=== PATIENT | male | born 1970 | race Caucasian/White ===

== ENCOUNTER → 2020-12-18 14:59 | Outpatient (CLI) | payer OTHER, SELFPAY ==
[2020-12-18] MEDS: COVID-19 VACC #1, MRNA(MOD) 100 MCG/0.5 ML VIAL IM (15:02)
== END ==
PROVIDERS: Family Provider Family Medicine; PCP Family Medicine; Visit Provider Internal Medicine
DX: Z23 Encounter for immunization (principal)
CPT/HCPCS: 0011A; 91301

== ENCOUNTER → 2021-01-15 14:44 | Outpatient (CLI) | payer OTHER, SELFPAY ==
[2021-01-15] MEDS: COVID-19 VACC #2, MRNA(MOD) 100 MCG/0.5 ML VIAL IM (14:48)
== END ==
PROVIDERS: Family Provider Family Medicine; PCP Family Medicine; Visit Provider Internal Medicine
DX: Z23 Encounter for immunization (principal)
CPT/HCPCS: 0012A; 91301

== ENCOUNTER 2024-12-24 10:17 | Emergency (ER) | payer OTHER, SELFPAY ==
[2024-12-24 10:20] VITALS: BP 127/58; PULSE 70; RESP 18; TEMP 36; O2SAT 100; BMI 28.7
--- NOTE | 2024-12-24 10:24 | DI.RAD.S_ITS ---
PROCEDURE: XR WRIST LT MIN 3V INDICATIONS: fall/bilateral wrist pain TECHNIQUE: 4 views of the wrist were acquired. COMPARISON: None. FINDINGS: Bones: Severely comminuted, mildly impacted fracture of the distal left radius with intra-articular extension. Scapholunate interval measures at the upper limits of normal. Remainder of the visualized osseous structures appear intact. No suspicious intra osseous lesions. Soft tissues: No suspicious soft tissue calcifications. IMPRESSION: Severely comminuted, mildly impacted intra-articular fracture of the distal left radius. Dictated by: Joshua Prado M.D. on 12/24/2024 at 11:49 Approved by: Joshua Prado M.D. on 12/24/2024 at 11:50
--- NOTE | 2024-12-24 10:24 | DI.RAD.S_ITS ---
PROCEDURE: XR WRIST RT MIN 3V INDICATIONS: fall/bilateral wrist pain TECHNIQUE: 4 views of the wrist were acquired. COMPARISON: [facility], CR, XR WRIST LT MIN 3V, 12/24/2024, 10:40. FINDINGS: Bones: Severely comminuted, intra-articular fracture of the distal right radius. Mild impaction. Overlying soft tissue swelling. Scapholunate interval measures at the upper limits of normal. Soft tissues: No suspicious soft tissue calcifications. IMPRESSION: Severely comminuted, intra-articular fracture of the distal right radius. Dictated by: Joshua Prado M.D. on 12/24/2024 at 11:50 Approved by: Joshua Prado M.D. on 12/24/2024 at 11:52
--- NOTE | 2024-12-24 10:27 | DI.RAD.S_ITS ---
PROCEDURE: XR SACRUM COCCYX MIN 2V INDICATIONS: fall onto hands and coccyx TECHNIQUE: 3 views of the sacrum and coccyx acquired. COMPARISON: None. FINDINGS: Bones: There is grade 1 anterolisthesis of L5 on S1 likely related to pars defect. No acute compression fractures. Mild cortical angulation of the anterior margin of the distal sacrum possibly related to nondisplaced fracture. Lower lumbar spondylosis. Soft tissues: Visualized bowel gas pattern is normal. No suspicious soft tissue densities. IMPRESSION: 1. Mild cortical angulation of the anterior margin of the distal sacrum which may be related to a nondisplaced fracture given history of fall. 2. Grade 1 anterolisthesis of L5 on S1 likely related to pars defect or spondylitic changes. No acute compression fractures of the imaged spine. Dictated by: Joshua Prado M.D. on 12/24/2024 at 11:52 Approved by: Joshua Prado M.D. on 12/24/2024 at 11:54
[2024-12-24] MEDS: HYDROMORPHONE 0.5 MG INJ IV (10:36)
[2024-12-24] MEDS: ONDANSETRON 4 MG/2 ML INJ IV (10:36)
--- NOTE | 2024-12-24 10:41 | ED.GENADULT ---
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 He did not strike his head. No head pain, face pain, posterior or anterior neck pain. No nausea or vomiting. No focal weakness to face arm or leg. No focal numbness to face arm or leg. He had bilateral wrist pain and coccygeal area low back pain after his fall. He was able to ambulate after the fall. No incontinence of urine or stool. He does not take blood thinner medications. No prior wrist surgical interventions or injuries, though he did report remote childhood wrist fractures both sides treated with immobilization only. No rectal bleeding symptoms. Related Data Previous Rx's Medication Instructions Recorded hydrocodone 5 mg-acetaminophen 325 1 tab PO Q6H PRN pain #14 tabs 12/24/25 mg tablet hydrocodone 5 mg-acetaminophen 325 1 tab PO Q6H PRN pain #14 tabs 12/24/25 mg tablet Allergies Allergy/AdvReac Type Severity Reaction Status Date / Time No Known Drug Allergies Allergy Verified 12/18/20 15:06 Patient History Social History Smoking Status: Former smoker Smoking Status: Former smoker Exam Narrative Exam Narrative: GENERAL: Well-developed patient, in mild distress. HEAD: Atraumatic. Normocephalic. No occipital or posterior head injuries, erythema, abrasions, tenderness. EYES: Pupils equal round and reactive. Extraocular motions intact. No scleral icterus. No injection or drainage. ENT: Nose without bleeding, purulent drainage. Throat without erythema, tonsillar hypertrophy or exudate. Airway patent. NECK: Trachea midline. Non tender, moves neck well [id number] and with flexion-extension. CARDIOVASCULAR: Regular rate and rhythm without murmurs, gallops, or rubs. RESPIRATORY: Clear to auscultation. Breath sounds equal bilaterally. No wheezes, rales, or rhonchi. GASTROINTESTINAL: Abdomen soft, non-tender, nondistended. EXTREMITIES: Right distal wrist tenderness with swelling, closed. Left distal wrist tenderness with swelling, closed. No obvious finger or fingernail deformities, no subungual hematomas, no obvious dislocations. No tenderness to mid upper forearms, elbows, upper arms, shoulders. No lower extremity injuries obvious. BACK: Nontender without deformity or crepitance. No flank tenderness. Tenderness low midline coccygeal, no skin irritation/abrasion, no crepitance. NEURO: AOx3. Motor functions grossly nonfocal SKIN: No rash or erythema of visible areas Initial Vital Signs Initial Vital Signs: Vital Signs Temperature 96.8 F L 12/24/24 10:20 Pulse Rate 70 12/24/24 10:20 Respiratory Rate 18 12/24/24 10:20 Blood Pressure 127/58 L 12/24/24 10:20 Pulse Oximetry 100 12/24/24 10:20 Oxygen Delivery Method Room Air 12/24/24 10:20 Course Orders Ordered: Discontinued Medications Hydrocodone Bitart/Acetaminophen (Hydrocodone/Acet 5/325 Tablet) 1 tab PO NOW ONE Stop: 12/24/24 16:19 Last Admin: 12/24/24 16:28 Dose: 1 tab Documented By: SIN Hydromorphone HCl (Hydromorphone 0.5 Mg Inj) 0.5 mg IV NOW ONE Stop: 12/24/24 10:33 Last Admin: 12/24/24 10:36 Dose: 0.5 mg Documented By: Hydromorphone HCl (Hydromorphone 1 Mg Inj) 1 mg IV NOW ONE Stop: 12/24/24 11:03 Last Admin: 12/24/24 11:09 Dose: 1 mg Documented By: Ondansetron HCl (Ondansetron 4 Mg/2 Ml Inj) 4 mg IV NOW ONE Stop: 12/24/24 10:33 Last Admin: 12/24/24 10:36 Dose: 4 mg Documented By: Vital Signs Vital signs: Vital Signs - 8 hr 12/24/24 14:22 12/24/24 14:22 12/24/24 17:41 Temperature 98.4 F Pulse Rate 78 76 65 Respiratory Rate 18 18 19 Blood Pressure 133/78 Pulse Oximetry 98 99 99 Oxygen Delivery Method Room Air Room Air Medical Decision Making Imaging Data Extremity x-ray #1: Radiologist's Impression: [address] [address] XRay Report Signed Patient: Jovana Meeks MR#: [id number] : 1970 Acct:[id number] Age/Sex: 54 / M Date of Service: 12/24/24 Loc: ED Accession Number: [id number] Procedure: XR wrist LT min 3V Ordering Provider: Alexandre Singh MD PROCEDURE: XR WRIST LT MIN 3V INDICATIONS: fall/bilateral wrist pain TECHNIQUE: 4 views of the wrist were acquired. COMPARISON: None. FINDINGS: Bones: Severely comminuted, mildly impacted fracture of the distal left radius with intra-articular extension. Scapholunate interval measures at the upper limits of normal. Remainder of the visualized osseous structures appear intact. No suspicious intra osseous lesions. Soft tissues: No suspicious soft tissue calcifications. IMPRESSION: Severely comminuted, mildly impacted intra-articular fracture of the distal left radius. Dictated by: Joshua Prado M.D. on 12/24/2024 at 11:49 Approved by: Joshua Prado M.D. on 12/24/2024 at 11:50 Extremity x-ray #2: Radiologist's Impression: [address] [address] XRay Report Signed Patient: Jovana Meeks MR#: [id number] : 1970 Acct:[id number] Age/Sex: 54 / M Date of Service: 12/24/24 Loc: ED Accession Number: [id number] Procedure: XR wrist RT min 3V Ordering Provider: Alexandre Singh MD PROCEDURE: XR WRIST RT MIN 3V INDICATIONS: fall/bilateral wrist pain TECHNIQUE: 4 views of the wrist were acquired. COMPARISON: [facility], , XR WRIST LT MIN 3V, 12/24/2024, 10:40. FINDINGS: Bones: Severely comminuted, intra-articular fracture of the distal right radius. Mild impaction. Overlying soft tissue swelling. Scapholunate interval measures at the upper limits of normal. Soft tissues: No suspicious soft tissue calcifications. IMPRESSION: Severely comminuted, intra-articular fracture of the distal right radius. Dictated by: Joshua Prado M.D. on 12/24/2024 at 11:50 Approved by: Joshua Prado M.D. on 12/24/2024 at 11:52 Coccygeal x-ray series: Radiologist's Impression: Close Lumbar Spine CT 12/24/24 Sacrum and Coccyx X-Ray (Signed) Joshua Prado - 12/24/24 Wrist X-Ray (Signed) Joshua Prado - 12/24/24 Wrist X-Ray (Signed) Joshua Prado - 12/24/24 Launch?[address] [address] XRay Report Signed Patient: Jovana Meeks MR#: [id number] : 1970 Acct:[id number] Age/Sex: 54 / M Date of Service: 12/24/24 Loc: ED Accession Number: [id number] Procedure: XR sacrum coccyx min 2V Ordering Provider: Alexandre Singh MD PROCEDURE: XR SACRUM COCCYX MIN 2V INDICATIONS: fall onto hands and coccyx TECHNIQUE: 3 views of the sacrum and coccyx acquired. COMPARISON: None. FINDINGS: Bones: There is grade 1 anterolisthesis of L5 on S1 likely related to pars defect. No acute compression fractures. Mild cortical angulation of the anterior margin of the distal sacrum possibly related to nondisplaced fracture. Lower lumbar spondylosis. Soft tissues: Visualized bowel gas pattern is normal. No suspicious soft tissue densities. IMPRESSION: 1. Mild cortical angulation of the anterior margin of the distal sacrum which may be related to a nondisplaced fracture given history of fall. 2. Grade 1 anterolisthesis of L5 on S1 likely related to pars defect or spondylitic changes. No acute compression fractures of the imaged spine. Dictated by: Joshua Prado M.D. on 12/24/2024 at 11:52 Approved by: Joshua Prado M.D. on 12/24/2024 at 11:54 CT lumbar spine: Radiologist's Impression: Close Lumbar Spine CT (Signed) Yasmin Jacinto - 12/24/24 Sacrum and Coccyx X-Ray (Signed) Joshua Prado - 12/24/24 Wrist X-Ray (Signed) Joshua Prado 12/24/24 Wrist X-Ray (Signed) Joshua Prado 12/24/24 Launch?[address] [place] [address] CT Scan Report Signed Patient: Jovana Meeks MR#: [id number] : 1970 Acct:[id number] Age/Sex: 54 / M Date of Service: 12/24/24 Loc: ED Accession Number: [id number] Procedure: CT lumbar spine wo con Ordering Provider: Alexandre Singh MD PROCEDURE: CT LUMBAR SPINE WO CON INDICATIONS: fall, coccyx pain, ?L5-S1 listhesis on XRay side view TECHNIQUE: Noncontrast 3 mm thick sections acquired from the T12 level to the sacrum. Sagittal and coronal reformats were constructed. For radiation dose reduction, the following was used: automated exposure control. COMPARISON: [facility], , XR SACRUM COCCYX MIN 2V, 12/24/2024, 10:40. FINDINGS: Image quality: Excellent Mild retrolisthesis of L4 on L5. Grade 1 anterolisthesis of L5 on S1, with bilateral pars defect. Vertebral body height of the lumbar spine are well maintained. Multilevel, mild degenerative disc disease of the lumbar spine. Multilevel disc bulge. Right neural foraminal stenosis: Mild at L4-5, severe at L5-S1. Left neural foraminal stenosis: Mild at L3-4, L4-5, and moderate at L5-S1. Central canal stenosis: Mild at L3-4 and L4-5, secondary to disc bulge. Multilevel mild facet arthropathy. Visualized sacrum is intact. Mild degenerative changes of bilateral sacroiliac joint. The coccyx is excluded from field of view. No visualized sacral coccyx fracture. No acute fracture in the lumbar spine. 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 Bilateral renal stones, measuring up to 9 mm on the left. No hydronephrosis of either kidney. Mild calcification of the abdominal aorta. Mild large amount of the prostate, partially visualized. IMPRESSION: 1. The coccyx is excluded from field of view. Otherwise no acute fracture in the lumbar spine, and in the sacrum. 2. Multilevel degenerative changes lumbar spine, most pronounced at L5-S1, where there is severe right and moderate left neural foraminal stenosis. 3. 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 Dictated by: Yasmin Jacinto M.D. on 12/24/2024 at 12:11 Approved by: Yasmin Jacinto M.D. on 12/24/2024 at 12:20 CT right wrist noncontrast: Radiologist's Impression: Close Upper Extremity CT (Signed) Maicol Castillo - 12/24/[address] 12/24/[address] (Signed) Yasmin Jacinto - 12/24/24 Sacrum and Coccyx X-Ray (Signed) EveJoshua - 12/24/24 Wrist X-Ray (Signed) EveJoshua - 12/24/24 Wrist X-Ray (Signed) Joshua Prado - 12/24/24 Launch?Image [address] [address] [address] Scan Report Signed Patient: Jovana Meeks MR#: [id number] : 1970 Acct:[id number] Age/Sex: 54 / M Date of Service: 12/24/24 Loc: ED Accession Number: [id number] Procedure: CT UE RT wo con Ordering Provider: Alexandre Singh MD PROCEDURE: CT UE RT WO CON INDICATIONS: comminuted fracture distal wrist, ortho request - right TECHNIQUE: Noncontrast 1 mm axial sections acquired through the carpal bones, with coronal and sagittal reformats. For radiation dose reduction, the following was used: automated exposure control, adjustment of mA and/or kV according to patient size. COMPARISON: [facility], CR, XR WRIST RT MIN 3V, 12/24/2024, 10:40. FINDINGS: Image quality: Excellent. Bones: Comminuted impacted intra-articular fracture of the distal radius again seen as demonstrated radiographically. On sagittal images, there is up to 4 mm step-off at the distal radial articular surface. Mild dorsal tilting of the radial talar surface is seen. The fracture line extends into the distal radioulnar joint as well without significant step-off. No definite ulnar fracture is seen. The remaining visualized osseous structures appear to be intact. Carpal bones are normally aligned. Soft tissues: Soft tissue edema and joint effusions are seen surrounding the wrist. The articular cartilages, ligaments, tendons are not well evaluated with CT. The visualized musculature is normal in bulk. IMPRESSION: Comminuted impacted intra-articular fracture of the distal radius as described above with up to 4 mm step-off and mild dorsal tilting of the distal radial articular surface. Approved by: Maicol Castillo M.D. on 12/24/2024 at 13:07 CT left wrist noncontrast: Radiologist's Impression: Close Upper Extremity CT (Signed) Maicol Castillo - 12/24/[address] (Signed) Maicol Castillo - 12/24/[address] (Signed) Yasmin Jacinto - 12/24/24 Sacrum and Coccyx X-Ray (Signed) EveJoshua - 12/24/24 Wrist X-Ray (Signed) EveJoshua - 12/24/24 Wrist X-Ray (Signed) EveJoshua - 12/24/24 Launch?[place] [address] CT Scan Report Signed Patient: Jovana Meeks MR#: [id number] : 1970 Acct:[id number] Age/Sex: 54 / M Date of Service: 12/24/24 Loc: ED Accession Number: [id number] Procedure: CT UE LT wo con Ordering Provider: Alexandre Singh MD PROCEDURE: CT UE LT WO CON INDICATIONS: comminuted distal radius fracture, ortho request - left TECHNIQUE: Noncontrast 1-1.5 mm axial sections were acquired through the elbow joint, with coronal and sagittal reformats. For radiation dose reduction, the following was used: automated exposure control, adjustment of mA and/or kV according to patient size. COMPARISON: [facility], CR, XR WRIST LT MIN 3V, 12/24/2024, 10:40. FINDINGS: Image quality: Excellent. Bones: Comminuted intra-articular fracture of the distal left radius with mild dorsal tilting of the distal radial articular surface. There is minimal step-off measuring 1-2 mm. Fracture line extends into the distal radioulnar joint without significant step-off. No ulnar fracture is seen. Carpal bones are normally aligned. No additional osseous fracture is seen. Soft tissues: Soft tissue edema and small joint effusions are seen surrounding the wrist. Small ossified fragments are seen along the dorsal radiocarpal joint line. The articular cartilages, ligaments, tendons are not well evaluated with CT. The visualized musculature is normal in bulk. IMPRESSION: Comminuted minimally displaced intra-articular fracture of the left distal radius with mild dorsal tilting of the distal radial articular surface but no significant step-off. Small joint effusions are seen with multiple tiny osseous fragments along the dorsal radiocarpal joint line. Approved by: Maicol Castillo M.D. on 12/24/2024 at 13:10 MDM Narrative Medical decision making narrative: 54-year-old male fell at work from back of a trailer onto both risk falling backwards, no head or neck or spine pain, tenderness to both wrists without gross deformity but swelling to both sides, also some coccygeal area discomfort. X-rays both wrists requested at triage, as well as coccygeal x-ray series. IV Dilaudid X-ray right wrist shows comminuted intra-articular fracture reasonably aligned, ED wet read. X-ray left wrist shows comminuted intra-articular fracture reasonably aligned, ED wet read. Sugar-tong splinting both arms with slings ordered. Follow up with Orthopedic surgery for likely ORIF stabilization. Coccygeal x-ray with no obvious distal coccygeal fracture, however on L5-S1 lateral view there is some spondylolisthesis, he is not particularly tender in that area but has low back discomfort, we will additionally imaged with CT lumbar spine to include the L5/S1 interspace. Patient agreeable. 1210, case discussed with local orthopedics Dr. Michel who reviewed x-rays, would request further imaging of both wrists given extensive impact comminution, likely needs hand surgery, local hand surgeon Dr. Maddox on vacation this week, advises follow up with hand surgery at [facility] Dr. Epperson if he is available, or with [facility] at [phone] studies ordered, patient agrees. CT wrists performed, images pushed to [facility] to coordinate hand surgery close follow up. Patient aware. 1415, still awaiting call back from [facility] hand clinic to coordinate follow up. Case discussed with hand surgery Dr Horne, can see in their hand clinic, likely no slots this next week, but can see patient if local hand surgeon not available by then. Contact info relayed to nurse, they will contact patient tomorrow. Also gave clinic contact info for local hand surgeon. Rx for hydrocodone/APAP. Sugartong splints applied with bilateral slings. DC home with mother. [facility] hand surgery [facility] or [facility], whichever can be arranged soonest. Off work until cleared by hand surgery likely after ORIF treatments completed. Can use air cushion donut as needed for possible cortical coccyx fracture. Return precautions discussed. [employer] form filled out, claim number [id number]. 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 Bilateral wrist pain. X-rays showed comminuted multi fragment intra-articular fractures of distal radius on both sides right and left. Splints were applied. Sling is applied. You also had some discomfort at the tailbone area. X-ray series of the coccyx tailbone region showed possible slight cortical bone change, possible small fracture there, which would not require any surgical treatment. Slight forward position L5 onto S1 which could be anatomic, prompted further imaging of that area with CT scanning. CT scanning without obvious acute spinal fracture changes of the L5/S1 region. Follow up with Orthopedic surgery, likely will need pinning/surgical intervention stabilization of both wrists comminuted multiple fragment intra-articular distal radius fractures. Contact information given for local orthopedic surgery on-call Dr. Michel. Call her office later today/tomorrow for close follow up surgical planning. Prescription for pain medication sent to your pharmacy. Phone consultation today with [facility] hand surgeon Dr Horne, they can see you in their clinic, at [phone]. They were given your face sheet phone number contact information, and they should be contacting you tomorrow from [facility] as well. Unclear if this would be any faster than with local hand surgeon Dr Maddox up here, who is reportedly on vacation this next week. Contact information also given for hand surgery Dr. Maddox appear. Perhaps call both numbers to see which follow up appointment can be done earlier. [employer] form filled out, claim [id number]. Off work until cleared from orthopedic surgery in follow up. Prescriptions: New hydrocodone-acetaminophen 5-325 mg tablet 1 tab PO Q6H PRN (Reason: pain) Qty: 14 0RF hydrocodone-acetaminophen 5-325 mg tablet 1 tab PO Q6H PRN (Reason: pain) Qty: 14 0RF Referrals: Kya Pace MD [Physician] - Emeterio Beasley MD [Primary Care Provider] - Zay Maddox MD [Physician] - Stand Alone Forms: Patient Portal/API/Survey
[2024-12-24 10:59] VITALS: PULSE 67; O2SAT 98
[2024-12-24 11:00] VITALS: PULSE 65; O2SAT 99
[2024-12-24] MEDS: HYDROMORPHONE 1 MG INJ IV (11:09)
--- NOTE | 2024-12-24 11:39 | DI.CT.S_ITS ---
PROCEDURE: CT LUMBAR SPINE WO CON INDICATIONS: fall, coccyx pain, ?L5-S1 listhesis on XRay side view TECHNIQUE: Noncontrast 3 mm thick sections acquired from the T12 level to the sacrum. Sagittal and coronal reformats were constructed. For radiation dose reduction, the following was used: automated exposure control. COMPARISON: [facility], , XR SACRUM COCCYX MIN 2V, 12/24/2024, 10:40. FINDINGS: Image quality: Excellent Mild retrolisthesis of L4 on L5. Grade 1 anterolisthesis of L5 on S1, with bilateral pars defect. Vertebral body height of the lumbar spine are well maintained. Multilevel, mild degenerative disc disease of the lumbar spine. Multilevel disc bulge. Right neural foraminal stenosis: Mild at L4-5, severe at L5-S1. Left neural foraminal stenosis: Mild at L3-4, L4-5, and moderate at L5-S1. Central canal stenosis: Mild at L3-4 and L4-5, secondary to disc bulge. Multilevel mild facet arthropathy. Visualized sacrum is intact. Mild degenerative changes of bilateral sacroiliac joint. The coccyx is excluded from field of view. No visualized sacral coccyx fracture. No acute fracture in the lumbar spine. 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 Bilateral renal stones, measuring up to 9 mm on the left. No hydronephrosis of either kidney. Mild calcification of the abdominal aorta. Mild large amount of the prostate, partially visualized. IMPRESSION: 1. The coccyx is excluded from field of view. Otherwise no acute fracture in the lumbar spine, and in the sacrum. 2. Multilevel degenerative changes lumbar spine, most pronounced at L5-S1, where there is severe right and moderate left neural foraminal stenosis. 3. 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 Dictated by: Yasmin Jacinto M.D. on 12/24/2024 at 12:11 Approved by: Yasmin Jacinto M.D. on 12/24/2024 at 12:20
--- NOTE | 2024-12-24 12:14 | DI.CT.S_ITS ---
PROCEDURE: CT UE LT WO CON INDICATIONS: comminuted distal radius fracture, ortho request - left TECHNIQUE: Noncontrast 1-1.5 mm axial sections were acquired through the elbow joint, with coronal and sagittal reformats. For radiation dose reduction, the following was used: automated exposure control, adjustment of mA and/or kV according to patient size. COMPARISON: [facility], CR, XR WRIST LT MIN 3V, 12/24/2024, 10:40. FINDINGS: Image quality: Excellent. Bones: Comminuted intra-articular fracture of the distal left radius with mild dorsal tilting of the distal radial articular surface. There is minimal step-off measuring 1-2 mm. Fracture line extends into the distal radioulnar joint without significant step-off. No ulnar fracture is seen. Carpal bones are normally aligned. No additional osseous fracture is seen. Soft tissues: Soft tissue edema and small joint effusions are seen surrounding the wrist. Small ossified fragments are seen along the dorsal radiocarpal joint line. The articular cartilages, ligaments, tendons are not well evaluated with CT. The visualized musculature is normal in bulk. IMPRESSION: Comminuted minimally displaced intra-articular fracture of the left distal radius with mild dorsal tilting of the distal radial articular surface but no significant step-off. Small joint effusions are seen with multiple tiny osseous fragments along the dorsal radiocarpal joint line. Approved by: Maicol Castillo M.D. on 12/24/2024 at 13:10
--- NOTE | 2024-12-24 12:15 | DI.CT.S_ITS ---
PROCEDURE: CT UE RT WO CON INDICATIONS: comminuted fracture distal wrist, ortho request - right TECHNIQUE: Noncontrast 1 mm axial sections acquired through the carpal bones, with coronal and sagittal reformats. For radiation dose reduction, the following was used: automated exposure control, adjustment of mA and/or kV according to patient size. COMPARISON: [facility], CR, XR WRIST RT MIN 3V, 12/24/2024, 10:40. FINDINGS: Image quality: Excellent. Bones: Comminuted impacted intra-articular fracture of the distal radius again seen as demonstrated radiographically. On sagittal images, there is up to 4 mm step-off at the distal radial articular surface. Mild dorsal tilting of the radial talar surface is seen. The fracture line extends into the distal radioulnar joint as well without significant step-off. No definite ulnar fracture is seen. The remaining visualized osseous structures appear to be intact. Carpal bones are normally aligned. Soft tissues: Soft tissue edema and joint effusions are seen surrounding the wrist. The articular cartilages, ligaments, tendons are not well evaluated with CT. The visualized musculature is normal in bulk. IMPRESSION: Comminuted impacted intra-articular fracture of the distal radius as described above with up to 4 mm step-off and mild dorsal tilting of the distal radial articular surface. Approved by: Maicol Castillo M.D. on 12/24/2024 at 13:07
[2024-12-24 14:22] VITALS: PULSE 76; PULSE 78; RESP 18; O2SAT 98; O2SAT 99
--- NOTE | 2024-12-24 16:17 | PC.NURSE ---
Pt reports that pain is returning. MD notified. Verbal order received for 1 tab hydrocodone PO.
[2024-12-24] MEDS: HYDROCODONE/ACET 5/325 TABLET 1 TAB PO (16:28)
[2024-12-24 17:41] VITALS: BP 133/78; PULSE 65; RESP 19; TEMP 36.9; O2SAT 99
== END 2024-12-24 17:42 | disposition home or self-care (01) ==
PROVIDERS: Emergency Provider Emergency Medicine; PCP Family Medicine
DX: S52.571A Other intraarticular fracture of lower end of right radius, initial encounter for closed fracture (principal); S52.572A Other intraarticular fracture of lower end of left radius, initial encounter for closed fracture; S32.2XXA Fracture of coccyx, initial encounter for closed fracture; W17.89XA Other fall from one level to another, initial encounter; Y93.89 Activity, other specified; Y99.0 Civilian activity done for income or pay
CPT/HCPCS: 29125; 36415; 72131; 72220; 73110; 73200; 96374; 96375; 96376; 99284; J1171; J2405

== ENCOUNTER 2024-12-25 04:01 | Emergency (ER) | payer OTHER, SELFPAY ==
[2024-12-25 04:12] VITALS: BP 145/75; PULSE 76; RESP 18; TEMP 37.1; O2SAT 97; BMI 28.7
--- NOTE | 2024-12-25 04:43 | ED_ITS ---
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 Maddox on vacation this week, phone call eventually made to hand surgery [facility], contact information given for follow up with their system, versus Dr. Maddox here in follow up. Patient also had cortical coccygeal fracture on additional imaging, no other new complaints or injuries known. He returns today for increasing pain both wrists, feels that the splints might be a little bit too tight. No re-injury. He has hydrocodone to take for pain control. Still having significant pain. Related Data Previous Rx's Medication Instructions Recorded hydrocodone 5 mg-acetaminophen 325 1 tab PO Q6H PRN pain #14 tabs 12/24/25 mg tablet hydrocodone 5 mg-acetaminophen 325 1 tab PO Q6H PRN pain #14 tabs //25 mg tablet Allergies Allergy/AdvReac Type Severity Reaction Status Date / Time No Known Drug Allergies Allergy Verified 12/18/20 15:06 Exam Narrative Exam Narrative: GENERAL: Well-developed patient, in mild distress. HEAD: Atraumatic. Normocephalic. EYES: Pupils equal round and reactive. Extraocular motions intact. No scleral icterus. No injection or drainage. ENT: Nose without bleeding, purulent drainage. Throat without erythema, tonsillar hypertrophy or exudate. Airway patent. NECK: Trachea midline. Non tender CARDIOVASCULAR: Regular rate and rhythm without murmurs, gallops, or rubs. RESPIRATORY: Clear to auscultation. Breath sounds equal bilaterally. No wheezes, rales, or rhonchi. GASTROINTESTINAL: Abdomen soft, non-tender, nondistended. EXTREMITIES: Bilateral upper extremity sugar-tong splints in place, good cap refill fingers, can wiggle fingers. BACK: Nontender without deformity or crepitance. No flank tenderness. NEURO: AOx3. Motor functions grossly nonfocal SKIN: No rash or erythema of visible areas Initial Vital Signs Initial Vital Signs: Vital Signs Temperature 98.8 F 12/25/24 04:12 Pulse Rate 76 12/25/24 04:12 Respiratory Rate 18 12/25/24 04:12 Blood Pressure 145/75 H 12/25/24 04:12 Pulse Oximetry 97 12/25/24 04:12 Oxygen Delivery Method Room Air 12/25/24 04:12 Course Orders Ordered: Discontinued Medications Hydromorphone HCl (Hydromorphone 1 Mg Inj) 1 mg IM NOW ONE Stop: 12/25/24 04:48 Last Admin: 12/25/24 04:54 Dose: 1 mg Documented By: FAB Vital Signs Vital signs: Vital Signs - 8 hr 12/25/24 04:12 12/25/24 05:17 Temperature 98.8 F Pulse Rate 76 78 Respiratory Rate 18 20 Blood Pressure 145/75 H 140/75 Pulse Oximetry 97 100 Oxygen Delivery Method Room Air Room Air MDM - Recheck/Abnormal Lab/Rx MDM Narrative Medical decision making narrative: Bilateral distal radius comminuted fractures from injury yesterday with evaluation x-ray and CT, awaiting hand surgery follow up, feels that the splints might be too tight, has bilateral sugar-tong splints with Abhilash wraps. These were loosened by nursing, initially felt a little bit too loose by the patient, rewrapped, feels improved. He would like additional pain control. IM Dilaudid given. Good cap refill fingers, with sensation and can wiggle them. Follow up with hand surgery local hand surgeon Dr. Maddox, or with [facility] hand surgery as outlined yesterday. Take pain control medications as directed. Return precautions discussed. Discharged again home with his mother. Discharge Plan Departure Patient Disposition: Home Clinical Impression: Fracture of distal end of left radius, Fracture of distal end of right radius Activity Restrictions/Additional Instructions: Fall injury at work yesterday with evaluation including x-rays and CT scans of your wrist showing comminuted intra-articular fractures of the distal ends of both radius bones right and left.. Placed in sugar-tong splint with Abhilash wrap i mmobilization and sling. Phone consultations at that time with [facility] hand surgery, who can arrange follow up for you if local hand surgeon Dr. Maddox's not available who apparently is on vacation per phone calls made to on-call orthopedic surgery yesterday. Contact hand surgery later today to arrange close follow up. You felt today that your splint might be a little bit too tight, it was initially loosened, then felt a little bit too loose, then was reapplied again, felt improved. Yesterday you also had suspected cortical fracture of the coccyx bone (tailbone), that does not require specific surgical intervention or follow up, but might take a few weeks to heal fully. Consider use of soft pillow or air cushion support to take pressure off the affected area in the coccyx tailbone region during healing phase if needed. Intramuscular Dilaudid dose given. Continue taking your oral hydrocodone/acetaminophen pain control medication as directed. Follow up with hand surgery above. Return to this/nearest emergency department for any change worsening symptoms or any concerns prior. Prescriptions: No Action hydrocodone-acetaminophen 5-325 mg tablet 1 tab PO Q6H PRN (Reason: pain) Qty: 14 0RF hydrocodone-acetaminophen 5-325 mg tablet 1 tab PO Q6H PRN (Reason: pain) Qty: 14 0RF Referrals: Emeterio Beasley MD [Primary Care Provider] - Zay Maddox MD [Physician] - Stand Alone Forms: Patient Portal/API/Survey
[2024-12-25] MEDS: HYDROMORPHONE 1 MG INJ IM (04:54)
[2024-12-25 05:17] VITALS: BP 140/75; PULSE 78; RESP 20; O2SAT 100
== END 2024-12-25 05:19 | disposition home or self-care (01) ==
PROVIDERS: Emergency Provider Emergency Medicine; PCP Family Medicine
DX: S52.572A Other intraarticular fracture of lower end of left radius, initial encounter for closed fracture (principal); S52.571A Other intraarticular fracture of lower end of right radius, initial encounter for closed fracture; W17.89XA Other fall from one level to another, initial encounter; Y99.0 Civilian activity done for income or pay
CPT/HCPCS: 29125; 96372; 99283; 99284; J1171